=== PATIENT | male | born 1955 | race Caucasian/White ===

== ENCOUNTER 2018-01-31 16:35 | Inpatient (IN) | payer BC, SELFPAY ==
[2018-01-31] VITALS (21 sets, daily range): BP systolic 116–185; BP diastolic 63–115; PULSE 39–65; RESP 12–20; TEMP 36.7–37; O2SAT 96–100; BMI 24.6; BMI 22.1; BMI 22.2
--- NOTE | 2018-01-31 15:30 | CT_ITS ---
STUDY: CTA CHEST REASON FOR EXAM: Male, 62 years old. Chest pain. Weakness. RADIATION DOSAGE (If Supplied By Facility): CTDIvol = ( 14.23 ) mGy, DLP = ( 1031.50 ) mGycm TECHNIQUE: The examination was performed with the intravenous administration of 100mL ml of Isovue 370 contrast material. Post-processing of the angiographic images was performed, with multiplanar reformation and 3D reconstruction. Individualized dose optimization techniques were used for this CT. COMPARISON: None. FINDINGS: Normal enhancement of the main pulmonary artery and right and left pulmonary arteries. Normal enhancement of the bilateral peripheral pulmonary arteries. There is no demonstrated pulmonary embolism. There is atherosclerotic calcification of the aortic arch and descending thoracic aorta. There is no demonstrated aortic dissection. Normal heart and pericardium. Normal mediastinum. Normal hilar regions. Normal visualized trachea and bronchi. There is minimal dependent atelectasis within the lower lobes. Normal chest wall structures. There are degenerative changes of thoracic spine. The limited images of the upper abdomen demonstrate a well-circumscribed low-attenuation focus within the left hepatic lobe that likely reflects underlying cyst. CT/CTA Chest W/WO Contrast IMPRESSION: No demonstrated pulmonary embolism or arterial dissection. Atherosclerosis. Minimal dependent atelectasis within the lower lobes. Electronically Signed: Lucina Molina MD at 18:35 EDT Tel , Service support ,
--- NOTE | 2018-01-31 16:48 | EKG12_ITS ---
Test Reason : CP Blood Pressure : / mmHG Vent. Rate : 065 BPM Atrial Rate : 075 BPM P-R Int : 196 ms QRS Dur : 090 ms QT Int : 430 ms P-R-T Axes : 080 075 069 degrees QTc Int : 447 ms Sinus rhythm with marked sinus arrhythmia Otherwise normal ECG Confirmed by EVE JAMES, YOSEPH ([id number]), mapping editor PINA EPPERSON ([id number]) on 02/04/2018 8:30:25 AM Referred By: Confirmed By:YOSEPH PRADO MD
--- NOTE | 2018-01-31 16:48 | CT_ITS ---
STUDY: CT BRAIN WITHOUT CONTRAST REASON FOR EXAM: Male, 62 years old. Weakness and chest pain RADIATION DOSAGE (If Supplied By Facility): CTDIvol = ( 44.99 ) mGy, DLP = ( 812.98 ) mGycm TECHNIQUE: Transaxial CT imaging of the brain was performed without administration of intravenous contrast material. Individualized dose optimization techniques were used for this CT. COMPARISON: None. FINDINGS: Normal soft tissue structures. Normal calvarium. Normal size ventricles and extra-axial spaces for the patient's age. Mild to moderate periventricular white matter ischemic changes.. Normal basal ganglia and thalami. Normal brainstem. Normal cerebellum. There is no intracranial hemorrhage. There are no findings of an acute ischemic infarction. Normal visualized paranasal sinuses. CT/Brain/Head without Contrast IMPRESSION: Periventricular white matter ischemic changes. No evidence for acute bleed. If concern for acute infarct MRI recommended. Electronically Signed: Thomas Lovell MD at 21:16 EDT , Service support ,
--- NOTE | 2018-01-31 16:54 | ED.DCSUM_ITS ---
- ER Visit Summary Date of Service: 01/31/18 Chief Complaint: syncope, chest pain History of Present Illness: The patient is a 62 M presents with a syncopal episode at work. He became lightheaded. He also developed some chest pain at the time. After his syncopal episode which was described as a brief loss of consciousness with rapid full recovery he developed left arm weakness. He has not taken his blood pressure medications for the past few months. Physical Examination: Patient is alert and oriented does not appear in significant distress Moist mucous membranes No signs of trauma Regular rate and rhythm without obvious murmurs. Clear lungs bilaterally Soft abdomen no tenderness midline incision from old surgery No obvious musculoskeletal abnormalities NIH stroke scale is 2, he gets 1 for weakness of his left arm that does not quite hit the ground after 10 seconds, and slight sensory abnormality compared to the contralateral side. Emergency Department Course and Treatment: CT angiogram of the chest is negative. CT angiogram of the head and neck were also ordered and pending, I believe patient had hypoperfusion due to his bradycardia, he may have some underlying atherosclerosis which manifested as strokelike symptoms. He certainly has bradycardia and he got all the way into the 30s, at that time he felt more symptomatic and atropine was given. He improved. Rest of the workup was unremarkable cardiology and medicine were consulted and patient will be admitted to ICU for further observation, and workup. Disposition: Admit to ICU in serious condition Impression: Bradycardia Strokelike symptoms Critical care time 35 minutes This note was generated with [employer] dictation software. It may contain incorrect words, spelling, and punctuation that were not noted in review of the chart prior to signing ED Disposition - Plan for ED Patient: Chief Complaint: Chest Pain Referrals: Prince Benavidez MD [Primary Care Provider] -
--- NOTE | 2018-01-31 16:56 | ED.RN ---
NO OLD EKG
--- NOTE | 2018-01-31 17:05 | ED.RN ---
THIS RN ASSISTED PT IN CALLING SISTER TO NOTIFY HER OF BEING IN THE ED.
[2018-01-31 17:10] LABS: Anion Gap 6 (5-15); BUN 15 mg/dL (7-18); BUN/Creat Ratio 18.8 RATIO (10-20); Calcium,Total 8.7 mg/dL (8.5-10.1); Chloride 112 mmol/L (98-107); EST Glomerular Filtration Rate 105 mL/min (>60); Est Glom Filt Rate - Afr Amer 127 mL/min (>60); Estimated Creatinine Clearance 96.97 ml/min; Glucose 80 mg/dL (74-106); Potassium 3.7 mmol/L (3.5-5.1); Sodium Level 145 mmol/L (136-145)
--- NOTE | 2018-01-31 17:10 | RAD_ITS ---
STUDY: X-RAY CHEST REASON FOR EXAM: Male, 62 years old. Chest pain TECHNIQUE: AP upright COMPARISON: None. FINDINGS: The lungs are clear and expanded. There is no demonstrated pleural abnormality. Normal size heart. Normal mediastinum and allegra. Normal visualized pulmonary arteries. There is atherosclerotic calcification of the aortic arch. Normal visualized thoracic spine. Normal visualized ribs, clavicles, and shoulders. There is no demonstrated abnormality of the visualized soft tissue structures of the upper abdomen. RAD/Chest 1 View IMPRESSION: No acute cardiopulmonary process. Electronically Signed: Lucina Molina MD at 21:10 EDT Tel , Service support ,
[2018-01-31 17:11] LABS: Bedside Glucose 90 mg/dL (70-110)
[2018-01-31 17:13] LABS: International Normalized Ratio 1.1; Prothrombin Time (Protime)PT. 14.5 SECONDS (11.7-14.9)
[2018-01-31 17:14] LABS: Partial Thromboplast Time 28.7 Seconds (24.1-36.2)
[2018-01-31 17:17] LABS: Absolute Lymphocyte Count 1.23 X10^3/ul (0.83-4.51); Absolute Neutrophil Count 3.9 X10^3/uL (2.0-7.7); Basophil# 0.01 X10^3/uL; Basophil% 0.2 % (0-1); Eosinophil# 0.07 X10^3/uL; Eosinophils% 1.3 % (0-5); Hematocrit 39.2 % (40-54); Hemoglobin 13.1 g/dl (13.0-16.5); Lymphocyte # 1.23 X10^3/ul (4.0); Mean Corp Hgb Conc 33.4 g/gl (32-36); Mean Corpuscular Hgb 30.8 pg (27.0-32.0); Monocyte% 7.2 % (0-10); Neutrophil # 3.86 X10^3/uL (2.7-7.7); Neutrophil % 69.1 % (47-70); Platelet Count 204 K/mm3 (150-450); RBC Distribution Width CV 13.8 % (11.6-14.6); RBC Distribution Width SD 46.3 fl (35.1-43.9); Red Blood Count 4.26 M/mm3 (4.6-6.2); White Blood Count 5.6 K/mm3 (4.4-11.0)
[2018-01-31 17:20] LABS: POSITIVE COUNT NO; POSITIVE DIFFERENTIAL NO; POSITIVE MORPHOLOGY NO
--- NOTE | 2018-01-31 17:37 | CT_ITS ---
STUDY: CTA OF THE BRAIN REASON FOR EXAM: Male, 62 years old. Chest pain and weakness RADIATION DOSAGE (If Supplied By Facility): CTDIvol = ( 14.23 ) mGy, DLP = ( 1031.50 ) mGycm TECHNIQUE: CT angiography was performed with a multi-detector CT scanner. Data acquisition was obtained from the skull base through the vertex following intravenous administration of ml of . MIP images were reconstructed from the axial data set. Post-processing of the angiographic images was performed, with multiplanar reformation and 3D reconstruction. Individualized dose optimization techniques were used for this CT. COMPARISON: None. FINDINGS: Normal bilateral petrous carotid arteries. There is calcific plaquing of the right cavernous carotid artery with a normal supraclinoid bifurcation. There is calcific plaquing of the left cavernous carotid artery with a normal supraclinoid bifurcation. Normal right A1 segments of the anterior cerebral artery. Normal left A1 segments of the anterior cerebral artery. Normal intact anterior communicating artery (ACOM). Normal bilateral A2 segments of the anterior cerebral arteries. Normal right M1 and M2 segments of the middle cerebral arteries, with a normal M1 bifurcation. Normal left M1 and M2 segments of the middle cerebral arteries, with a normal M1 bifurcation. Posterior communicating arteries not visualized consistent with normal variant Normal bilateral vertebral arteries. Normal basilar artery with a normal basilar bifurcation. The visualized bilateral superior cerebellar (SCA) arteries are normal. Normal bilateral P1, P2 and visualized P3 segments of the posterior cerebral arteries. There is no demonstrated aneurysm of the [place]. There is no demonstrated abnormality of the visualized brain. CT/CTA Head W/WO Contrast IMPRESSION: Mild atherosclerotic disease. No evidence for hemodynamically significant stenosis or occlusive thrombus within the [place] Electronically Signed: Thomas Lovell MD at 21:10 EDT , Service support ,
--- NOTE | 2018-01-31 17:37 | CT_ITS ---
STUDY: CTA neck with IV contrast REASON FOR EXAM: Male, 62 years old. Chest pain RADIATION DOSAGE (If Supplied By Facility): CTDIvol = ( 14.23 ) mGy, DLP = ( 1031.50 ) mGycm. Individualized dose optimization techniques were used for this CT.? TECHNIQUE: Axial CTA images of the neck were obtained after intravenous administration of 100 cc of Isovue 370. Maximum intensity projection imaging was performed.NASCET Criteria was utilized to assess for carotid stenosis COMPARISON: None. FINDINGS: Origin of the great vessels demonstrate atherosclerotic calcifications with soft tissue plaque formation. Bilateral common carotid arteries are patent however there is atherosclerotic soft tissue plaque formation and calcifications of the bilateral common carotid arteries noted in the mid and distal segments. Approximately less than 50% stenosis of the bilateral carotid bifurcations with soft tissue plaque formation and calcifications, right greater than left. The mid and distal segments of the cervical internal carotid arteries are patent. The vertebral arteries are patent with atherosclerotic calcifications at the origins. The left dominant vertebral artery seen. The vertebrobasilar junction is patent. Degenerative changes in the cervical spine. Multilevel neural foraminal narrowing. Intracranial vasculature is not well seen on this exam. There are likely emphysematous changes in the lung parenchyma with scarring which can be assessed with CT examination of the chest IMPRESSION: Approximately less than 50% stenosis of the bilateral proximal cervical internal carotid arteries with soft tissue plaque formation and calcifications. No significant stenosis of the cervical vertebral arteries seen. Electronically Signed: Channing Estrada, at 21:07 EDT Tel , Service support , CT/CTA Neck W/WO Contrast
[2018-01-31] MEDS: Atropine Sulfate 1 MG/10 ML Syringe IV (17:41)
--- NOTE | 2018-01-31 18:03 | EKG12_ITS ---
Test Reason : REPEAT Blood Pressure : / mmHG Vent. Rate : 038 BPM Atrial Rate : 038 BPM P-R Int : 256 ms QRS Dur : 090 ms QT Int : 498 ms P-R-T Axes : 071 075 058 degrees QTc Int : 395 ms Marked sinus bradycardia with 1st degree A-V block with Premature atrial complexes in a pattern of bi geminy Abnormal ECG Confirmed by EVE JAMES, YOSEPH ([id number]), features editor PINA EPPERSON ([id number]) on 02/04/2018 8:30:40 AM Referred By: Confirmed By:YOSEPH PRADO MD
[2018-01-31 21:07] LABS: Thyroid Stim Hormone (TSH) 2.16 uIU/mL (0.358-3.74)
--- NOTE | 2018-01-31 21:12 | HP.PCM_ITS ---
Problem List (1) Bradycardia Status: Acute (2) Near syncope Status: Acute (3) Hypertension Status: Chronic Qualifiers: Hypertension type: unspecified Qualified Code(s): I10 - Essential (primary ) hypertension History of Present Illness Date of Admission: 01/31/18 Chief Complaint: dizzyness and lightheaded with slow heart rate The patient is a 62 year old male patient with a history of hypertension who has not taken his medication for four months presents to the ER after an episode of dizziness and lightheadedness at work. He was lowered to the floor and it is unclear if he completely passed out. He complained of chest pain to those around him at the time but denies pain at present. He was noted to have left wrist numbness and weakness in the ER and CTA of head and neck was ordered. He had an episode of bradycardia for which he received a dose of atropine. No previous cardiac history but he does smoke and is hypertensive. He denies chest pain or shortness of breath at present and denies feeling numb or tingling at this time. He will be admitted to the ICU with a consult to Dr Villafana. Past Medical History Past Medical History (Chronic Problems): Chronic Problems Hypertension (Chronic) Allergies No Known Allergies Allergy (Verified 01/31/18 16:35) Home Medications: Ambulatory Orders Medication Instructions Recorded Lisinopril/Hydrochlorothiazide 1 each PO DAILY 04/09/16 [Zestoretic 20-25 mg Tablet] Smoking Status: Current every day smoker Tobacco Use: Cigarettes, Pipe Review of Systems Constitutional: Denies: Chills, Fever, Weight Change HEENT: Denies: Head Aches, Sinus Congestion, Sinus Drainage Cardiovascular: Reports: Chest Pain, Light Headedness, Syncope. Denies: Palpitations Respiratory: Denies: Cough, Shortness of breath at rest, Sputum production Gastrointestinal: Denies: Abdominal Pain, Nausea, Vomiting Genitourinary: Denies: Dysuria Musculoskeletal: Denies: Joint Pain, Joint Tenderness Skin: Denies: Rash, Wounds Neurological: Reports: Numbness, Tingling. Denies: Focal weakness Psychiatric: Denies: Anxiety, Depression, Homicidal Ideations, Suicidal Ideations Hematologic/ Lymphatic: Denies: Easy Bruising, Easy Bleeding VTE Information - Inpt Only VTE Present on Admission: No VTE Mechan Device Prophylaxis: None VTE Pharm Prophylaxis ordered?: Yes Patient Problems: Active and Suspected Problems Bradycardia (Acute) Near syncope (Acute) - Physical Exam General: Alert, Oriented x3, Cooperative HEENT: Atraumatic, PERRLA, EOMI, Normocephalic Neck: Supple, No JVD, Negative Carotid Bruits Lungs: Clear to auscultation, Normal air movement Cardiovascular: Normal S1, Normal S2, No murmurs, Bradycardic, Irregular Rate Abdomen: Bowel Sounds Present, Soft, Non Tender Extremities: No edema, Capillary Refill Less than 3 Seconds Skin: No rashes, No breakdown Musculoskeletal: No Tenderness to Palpation of Joints or Extremities Neurological: Cranial nerves II-XII grossly intact Psych/Mental Status: Normal Affect, Appropriate Vital Signs Temp Pulse Resp BP Pulse Ox 98.6 F 65 14 156/93 H 96 01/31/18 16:36 01/31/18 20:30 01/31/18 20:30 01/31/18 20:30 01/31/18 20:30 Oxygen Flow Rate (L/min) 2 Oxygen Delivery Method Nasal Cannula Weight: 166 lb 10.711 oz Body Mass Index (BMI) 24.6 Finger Stick Blood Glucose 90 Laboratory Tests Past 24 Hrs 01/31/18 01/31/18 01/31/18 16:40 16:40 16:40 WBC 5.6 RBC 4.26 L Hgb 13.1 Hct 39.2 L MCV 92.0 MCH 30.8 MCHC 33.4 RDW 13.8 RDW Differential 46.3 H Plt Count 204 MPV 10.0 Immature Gran % (Auto) 0.200 Neut % (Auto) 69.1 Lymph % (Auto) 22.0 [place] % (Auto) 7.2 Eos % (Auto) 1.3 Baso % (Auto) 0.2 Absolute Neuts (auto) 3.9 Absolute Lymphs (auto) 1.23 Total Counted Not Reportable PT 14.5 INR 1.1 APTT 28.7 Sodium 145 Potassium 3.7 Chloride 112 H Carbon Dioxide 27.0 Anion Gap 6 BUN 15 Creatinine 0.80 Estim Creat Clear Calc 96.97 Est GFR (MDRD) Af Amer 127 Est GFR (MDRD) Non-Af 105 BUN/Creatinine Ratio 18.8 Glucose 80 Calcium 8.7 Magnesium Troponin I < 0.015 TSH 01/31/18 16:40 WBC RBC Hgb Hct MCV MCH MCHC RDW RDW Differential Plt Count MPV Immature Gran % (Auto) Neut % (Auto) Lymph % (Auto) [place] % (Auto) Eos % (Auto) Baso % (Auto) Absolute Neuts (auto) Absolute Lymphs (auto) Total Counted PT INR APTT Sodium Potassium Chloride Carbon Dioxide Anion Gap BUN Creatinine Estim Creat Clear Calc Est GFR (MDRD) Af Amer Est GFR (MDRD) Non-Af BUN/Creatinine Ratio Glucose Calcium Magnesium Pending Troponin I TSH Pending POC Glucose 01/31/18 17:00 POC Glucose 90 Assessment/Plan All Active Problems Bradycardia (Acute) Near syncope (Acute) Plan - admit to ICU - Consult Dr Villafana - NPO at midnight - IV normal saline at 100cc/hour - cbc, bmp in am - cycle cardiac markers - echo in am - LMWH for DVT prophylaxis - add prn hydralazine order for control of hypertension - smoking cessation encouraged Code Visit Inpatient E&M: 74509 Init Hosp L3
[2018-01-31] MEDS: hydrALAZINE 20 MG/ML Vial 10 MG IV (22:50)
[2018-01-31] MEDS: 0.9% Normal Saline 1,000 ML 100 ML IV (23:05)
[2018-01-31 23:56] LABS: M R Staph aureus DNA By PCR Negative (Negative); Probe Check PASS; Specimen Processing Control PASS
[2018-02-01] VITALS (16 sets, daily range): BP systolic 95–145; BP diastolic 47–81; PULSE 36–52; RESP 14–19; TEMP 36.7; O2SAT 95–100
[2018-02-01] MEDS: 0.9% NaCl Peripheral Flush Adult/Peds IV (00:38)
[2018-02-01 03:32] LABS: Hematocrit 36.9 % (40-54); Hemoglobin 12.6 g/dl (13.0-16.5); Mean Corp Hgb Conc 34.1 g/gl (32-36); Mean Corpuscular Hgb 32.1 pg (27.0-32.0); Mean Corpuscular Volume 94.1 fL (80-94); Mean Platelet Vol. 9.9 fl (6.2-12.0); Platelet Count 163 K/mm3 (150-450); RBC Distribution Width CV 13.7 % (11.6-14.6); RBC Distribution Width SD 45.1 fl (35.1-43.9); Red Blood Count 3.92 M/mm3 (4.6-6.2); White Blood Count 3.8 K/mm3 (4.4-11.0)
[2018-02-01 03:35] LABS: Scan Indicated on CBC? Y/N NO
[2018-02-01 03:47] LABS: ALB/GLOB Ratio 1.1 RATIO (0.9-2.4); AST(SGOT) 16 U/L (15-37); Alanine Aminotransfer ALT/SGPT 21 U/L (16-61); Albumin, Serum 2.8 g/dL (3.2-5.0); Alkaline Phosphatase 58 U/L (45-117); Anion Gap 5 (5-15); BUN 11 mg/dL (7-18); BUN/Creat Ratio 18.2 RATIO (10-20); Calcium,Total 7.6 mg/dL (8.5-10.1); Chloride 114 mmol/L (98-107); Cholesterol 109 mg/dL (200); EST Glomerular Filtration Rate 145 mL/min (>60); Est Glom Filt Rate - Afr Amer 175 mL/min (>60); Estimated Creatinine Clearance 124.53 ml/min; Globulin 2.6 g/dL (2.2-4.2); Glucose 89 mg/dL (74-106); High Density Lipoprotein 31 mg/dL; Potassium 3.3 mmol/L (3.5-5.1); Protein, Total 5.4 g/dL (6.4-8.2); Sodium Level 148 mmol/L (136-145); Triglycerides 71 mg/dL; Very Low Density Lipoprotein 14 mg/dL (5-40)
--- NOTE | 2018-02-01 07:44 | STE_ITS ---
Reason For Study: Arrhythmia Stress Results Protocol: Jarrod Protocol Maximum Predicted HR: 159 bpm Target HR: 135 bpm% Max imum Predicted HR: 82 % DurationHeart Rate Stage (mm:ss) (bpm) BPCom ment Baseline 45 140/78 No Chest Pain Jarrod Protocol Stage I 3:00 93 160/72No Chest Pain; Mild Dyspnea Jarrod Protocol Stage II 3:00 11 6 174/70No Chest Pain; Mild Dyspnea Jarrod Protocol Stage III 3:00 13 1 168/64No Chest Pain; Moderate Dyspnea Recovery 65 130/72 No Chest Pain; No Dyspnea Stress Duration: 9:00 mm:ss Maximum Stress HR: 131 bpmM ETS: 10 Baseline Echocardiogram Findings Stress Echo Wall motion Data Resting WMIntermediate WMStress WM Resting Wall Motion Wall Motion Stress No regional wall motion No regional wall motion abnormalities noted. abnormalities noted. Ejection Fraction 55 %. Ejection Fraction 65 %. Stress Results Normal blood pressure response to exercise. Exercise was stopped due to achievement of target heart rate. EKG Data Baseline ECG demonstrates normal sinus rhythm with a rate of 44 beats per minute. Normal intervals are noted. The resting blood pressure was 140/78. The patient exercised according to the regular Jarrod protocol for a total duration of 9 minutes. The maximum heart rate attained was 142 beats per minute. This was 89% of maximum predicted heart rate. The patient exercised into stage 3 of the Jarrod protocol. During stress, there were no ST or T wave changes noted to suggest ischemia. At peak exercise, upsloping ST changes only were noted, which did not meet the criteria for ischemia. The peak blood pressure was 174/70. No arrhythmias noted. No clinical angina was noted. Interpretation Summary Normal resting LV systolic function. Nonstenotic valves. With stress, the LV size decreased and all segments augmented normally. The LVEF increased from 55% to 65%. Negative for ischemia at 89% of MPHR and at 10.4 METS. Normal stress echo with normal chronotropic response. Ordering Physician: Eugenio Villafana Referring Physician: Eugenio Villafana MD Performed By: Wanda Louis, JAISON, RVT
--- NOTE | 2018-02-01 07:55 | CON.PCM_ITS ---
Reason for Consult Date of Consultation: 02/01/18 Reason for Consultation: Bradycardia and lightheadedness History of Present Illness: The patient is a 62 year old male patient with a history of hypertension who has not taken his medication for four months presents to the ER after an episode of dizziness and lightheadedness at work. He was lowered to the floor and it is unclear if he completely passed out. He complained of chest pain to those around him at the time but denies pain at present. He was noted to have left wrist numbness and weakness in the ER and CTA of head and neck was ordered. The above was noted to be negative. He had an episode of bradycardia for which he received a dose of atropine. . He denies chest pain or shortness of breath at present and denies feeling numb or tingling at this time. He has not had any palpitations no paroxysmal nocturnal dyspnea pedal edema and he has not been on any rate limiting medications. He was basically previously on a combination lisinopril medication. At this particular time he feels well. He was admitted to the intensive care unit and observed overnight he was bradycardic but asymptomatic and did not require any further atropine or external pacing. Past Medical History Allergies/Adverse Reactions: Allergies No Known Allergies Allergy (Verified 01/31/18 16:35) Home Medications: Ambulatory Orders Medication Instructions Recorded Lisinopril/Hydrochlorothiazide 1 each PO DAILY 04/09/16 [Zestoretic 20-25 mg Tablet] Past Medical History (Chronic Problems): Chronic Problems Hypertension (Chronic) Surgical History: no surgical history Smoking Status: Current every day smoker Tobacco Use: Cigarettes, Pipe Alcohol: None Drugs: None Review of Systems - Review of Systems General: Denies: Fever, Night Sweats, Fatigue Cardiovascular: Reports: Near Syncope. Denies: Chest Discomfort, Shortness of Breath, Orthopnea, PND, Peripheral Edema, Palpitations, Lightheadedness, Dizziness, Syncope Respiratory: Denies: Cough, Sputum Production, Hemoptysis Gastrointestinal: Denies: Hematemesis, Hematochezia, Melena Genitourinary: Denies: Dysuria, Hematuria Skin: Denies: Rash Neurological: Denies: Dizziness Subjectve: Pleasant gentleman in no apparent distress Objective: Vital Signs Temp Pulse Resp BP Pulse Ox 98.1 F 42 L 14 114/75 98 02/01/18 04:00 02/01/18 07:00 02/01/18 07:00 02/01/18 07:00 02/01/18 07:00 Oxygen Flow Rate (L/min) 2 Oxygen Delivery Method Room Air Weight: 149 lb 14.629 oz Body Mass Index (BMI) 22.1 Intake and Output for Last 24 Hours 01/30/18 01/31/18 02/01/18 23:59 23:59 23:59 Intake Total 415 / 415 547 / 547 Output Total 625 / 625 Balance 415 / 415 -78 / -78 General: Awake, Alert, Oriented x 3 HEENT: PERRL, EOMI, Sclera Non Icteric Neck: Supple, Good ROM, No Lymph Node Enlargement Lungs: Clear to auscultation Cardiovascular: Regular Rhythm, Normal S1, Normal S2, No Murmurs, No Rubs, No Gallops Vascular: No Carotid Bruits, Normal Femoral Pulses, Normal Radial Pulses, Normal Dorsalis Pedal Pulse, Normal Posterior Tibial Pulses Abdomen: Bowel Sounds Present, Soft, Non Tender, No HSM, No Organomegaly Extremities: No Cyanosis, No Clubbing, No edema Neurological: No Focal Motor or Sensory Deficit 01/31/18 22:50: Troponin I < 0.015 02/01/18 03:15: WBC 3.8 L, RBC 3.92 L, Hgb 12.6 L, Hct 36.9 L, MCV 94.1 H, MCH 32.1 H, MCHC 34.1, RDW 13.7, RDW Differential 45.1 H, Plt Count 163, MPV 9.9 02/01/18 03:15: Sodium 148 H, Potassium 3.3 L, Chloride 114 H, Carbon Dioxide 29.0, Anion Gap 5, BUN 11, Creatinine 0.60 L, Est GFR (MDRD) Af Amer 175, Est GFR (MDRD) Non-Af 145, BUN/Creatinine Ratio 18.2, Glucose 89, Calcium 7.6 L, Total Bilirubin 0.40, Triglycerides 71, Cholesterol 109, LDL Cholesterol 64, VLDL Cholesterol 14, HDL Cholesterol 31 L 02/01/18 03:15: Troponin I 0.016 02/01/18 06:20: Troponin I < 0.015 Rhythm: EKG: Initial EKG demonstrates normal sinus rhythm with a rate of 70 bpm.: Follow-up EKG demonstrates sinus bradycardia with premature atrial complexes rate of 58 bpm with no acute changes.: This morning's EKG on 02/01 demonstrates normal sinus rhythm with a rate of 63 bpm. Assessment/Plan 1. Presyncopal episode. Patient presents with a presyncopal episode associated with bradycardia. He appears to have normal LA QRS conduction. He was bradycardic through the night but no pauses in excess of 2.5 seconds. My recommendation at this time would be in light of his electrolytes been fairly normal and his thyroid function tests be normal for him to undergo a stress test to assess his chronotropic competence. * Depending on the above further recommendations will be made. An echocardiogram will also be performed to assess his left ventricular function. * 2. Hypertension He does have a history of hypertension but apparently has not been compliant with his medications. He was hypertensive last night when he came in today appears to be doing fairly well. Thank you for allowing me to participate in the care of your patient. Please don't hesitate to call if any issues arise
--- NOTE | 2018-02-01 08:16 | NURSING ---
Pt transported to stress echo via bed by this RN
--- NOTE | 2018-02-01 09:38 | CASEMGMT ---
SEE ABHIJIT BARAJAS LINK. D/C PLAN: Home Discussed Adv Directives with pt and booklet given. Pt has a son and sister who he would like as DPOA. ABHIJIT BARAJAS discussed pt to consider primary and secondary for these choices. Discussed about Living Will also. ABHIJIT BARAJAS discussed importance of speaking with family re: Living Will and his choices. SW consulted and will go in to talk to pt. No discharge needs identified. Nany OAKLEY RN, CM
[2018-02-01] MEDS: Lisinopril 20 MG Tablet PO (10:46)
[2018-02-01] MEDS: Enoxaparin 40 MG/0.4 ML Syringe SC (10:46)
[2018-02-01] MEDS: Aspirin E.C. 81 MG Tablet PO (10:46)
--- NOTE | 2018-02-01 11:13 | PCM.PN.HOSP ---
Patient Problems: Active and Suspected Problems Bradycardia (Acute) Near syncope (Acute) Subjective: No new events. Vitals/I&O's: Vital Signs Temp Pulse Resp BP Pulse Ox 36.7 C 49 L 14 145/73 H 99 02/01/18 09:59 02/01/18 11:02 02/01/18 11:00 02/01/18 11:00 02/01/18 11:00 Oxygen Flow Rate (L/min) 2 Oxygen Delivery Method Room Air Weight: 68 kg Body Mass Index (BMI) 22.1 Intake and Output for Last 24 Hours 01/30/18 01/31/18 02/01/18 23:59 23:59 23:59 Intake Total 415 / 415 547 / 547 Output Total 625 / 625 Balance 415 / 415 -78 / -78 General: Alert, No apparent distress HEENT: Atraumatic, Normocephalic Oral: Moist Mucosa Neck: No Nodes, Thyroid Normal Size and Texture Lungs: Clear to auscultation, Normal air movement, No rhonchi, No wheeze Cardiovascular: Regular rate, Regular Rhythm, Normal S1, Normal S2, No murmurs Abdomen: Bowel Sounds Present, Soft, Non Tender, Non-Distended, No Hepato-splenomegaly Extremities: No edema, No Calf Tenderness Laboratory Results 01/31/18 22:15: MRSA (PCR) Negative 01/31/18 22:50: Troponin I < 0.015 02/01/18 03:15: WBC 3.8 L, RBC 3.92 L, Hgb 12.6 L, Hct 36.9 L, MCV 94.1 H, MCH 32.1 H, MCHC 34.1, RDW 13.7, RDW Differential 45.1 H, Plt Count 163, MPV 9.9 02/01/18 03:15: Sodium 148 H, Potassium 3.3 L, Chloride 114 H, Carbon Dioxide 29.0, Anion Gap 5, BUN 11, Creatinine 0.60 L, Estim Creat Clear Calc 124.53, Est GFR (MDRD) Af Amer 175, Est GFR (MDRD) Non-Af 145, BUN/Creatinine Ratio 18.2, Glucose 89, Calcium 7.6 L, Total Bilirubin 0.40, AST 16, ALT 21, Alkaline Phosphatase 58, Total Protein 5.4 L, Albumin 2.8 L, Globulin 2.6, Albumin/Globulin Ratio 1.1, Triglycerides 71, Cholesterol 109, LDL Cholesterol 64, VLDL Cholesterol 14, HDL Cholesterol 31 L 02/01/18 03:15: Troponin I 0.016 02/01/18 06:20: Troponin I < 0.015 Current Medications Aspirin (Ecotrin) 81 mg PO DAILY@0800 ON LICENSE OF [facility] Last Admin: 02/01/18 10:46 Dose: 81 mg Enoxaparin Sodium (Lovenox) 40 mg SC DAILY@1000 ON LICENSE OF [facility] Last Admin: 02/01/18 10:46 Dose: 40 mg Hydralazine HCl (Apresoline Iv) 10 mg IV Q6H PRN PRN PRN Reason: BLOOD PRESSURE ELEVATION Last Admin: 01/31/18 22:50 Dose: 10 mg Sodium Chloride () 1,000 mls @ 100 mls/hr IV .Q10H ON LICENSE OF [facility] Last Admin: 02/01/18 10:13 Dose: Not Given Sodium Chloride () 250 mls @ 15 mls/hr IV .[id number] PRN PRN Reason: SALINE FLUSH Lisinopril (Zestril) 20 mg PO DAILY ON LICENSE OF [facility] Last Admin: 02/01/18 10:46 Dose: 20 mg Magnesium Hydroxide (Milk Of Magnesia) 30 ml PO DAILY PRN PRN PRN Reason: Constipation Nitroglycerin (Nitrostat) 0.4 mg SUBLINGUAL Q5M PRN PRN Reason: CHEST PAIN Sodium Chloride () 5 - 30 ml IV UD PRN PRN Reason: SALINE FLUSH Last Admin: 02/01/18 00:38 Dose: 30 ml Medical Necessity - Tobacco Use Smoking Status: Current every day smoker Tobacco Use: Cigarettes, Pipe Assessment/Plan All Active Problems Bradycardia (Acute) Near syncope (Acute) 1. Near syncope/syncope work up has been unremarkable pt endorses that he does not eat well, nor drink fluids when he is working (2nd shift) event may have been multifactorial d/t poor eating and drinking, lifting heavy object (40-50#) that led to the event bradycardia has been persistent with PACs 2. Bradycardia persistent w PACs follow up with Dr. Villafana in 6 weeks
--- NOTE | 2018-02-01 11:17 | PN_ITS ---
Patient Problems: Active and Suspected Problems Bradycardia (Acute) Near syncope (Acute) Subjective: No new events. Vitals/I&O's: Vital Signs Temp Pulse Resp BP Pulse Ox 36.7 C 49 L 14 145/73 H 99 02/01/18 09:59 02/01/18 11:02 02/01/18 11:00 02/01/18 11:00 02/01/18 11:00 Oxygen Flow Rate (L/min) 2 Oxygen Delivery Method Room Air Weight: 68 kg Body Mass Index (BMI) 22.1 Intake and Output for Last 24 Hours 01/30/18 01/31/18 02/01/18 23:59 23:59 23:59 Intake Total 415 / 415 547 / 547 Output Total 625 / 625 Balance 415 / 415 -78 / -78 General: Alert, No apparent distress HEENT: Atraumatic, Normocephalic Oral: Moist Mucosa Neck: No Nodes, Thyroid Normal Size and Texture Lungs: Clear to auscultation, Normal air movement, No rhonchi, No wheeze Cardiovascular: Regular rate, Regular Rhythm, Normal S1, Normal S2, No murmurs Abdomen: Bowel Sounds Present, Soft, Non Tender, Non-Distended, No Hepato- splenomegaly Extremities: No edema, No Calf Tenderness Laboratory Results 01/31/18 22:15: MRSA (PCR) Negative 01/31/18 22:50: Troponin I < 0.015 02/01/18 03:15: WBC 3.8 L, RBC 3.92 L, Hgb 12.6 L, Hct 36.9 L, MCV 94.1 H, MCH 32.1 H, MCHC 34.1, RDW 13.7, RDW Differential 45.1 H, Plt Count 163, MPV 9.9 02/01/18 03:15: Sodium 148 H, Potassium 3.3 L, Chloride 114 H, Carbon Dioxide 29.0, Anion Gap 5, BUN 11, Creatinine 0.60 L, Estim Creat Clear Calc 124.53, Est GFR (MDRD) Af Amer 175, Est GFR (MDRD) Non-Af 145, BUN/Creatinine Ratio 18.2 , Glucose 89, Calcium 7.6 L, Total Bilirubin 0.40, AST 16, ALT 21, Alkaline Phosphatase 58, Total Protein 5.4 L, Albumin 2.8 L, Globulin 2.6, Albumin/ Globulin Ratio 1.1, Triglycerides 71, Cholesterol 109, LDL Cholesterol 64, VLDL Cholesterol 14, HDL Cholesterol 31 L 02/01/18 03:15: Troponin I 0.016 02/01/18 06:20: Troponin I < 0.015 Current Medications Aspirin (Ecotrin) 81 mg PO DAILY@0800 [facility] Last Admin: 02/01/18 10:46 Dose: 81 mg Enoxaparin Sodium (Lovenox) 40 mg SC DAILY@1000 [facility] Last Admin: 02/01/18 10:46 Dose: 40 mg Hydralazine HCl (Apresoline Iv) 10 mg IV Q6H PRN PRN PRN Reason: BLOOD PRESSURE ELEVATION Last Admin: 01/31/18 22:50 Dose: 10 mg Sodium Chloride () 1,000 mls @ 100 mls/hr IV .Q10H [facility] Last Admin: 02/01/18 10:13 Dose: Not Given Sodium Chloride () 250 mls @ 15 mls/hr IV .[id number] PRN PRN Reason: SALINE FLUSH Lisinopril (Zestril) 20 mg PO DAILY [facility] Last Admin: 02/01/18 10:46 Dose: 20 mg Magnesium Hydroxide (Milk Of Magnesia) 30 ml PO DAILY PRN PRN PRN Reason: Constipation Nitroglycerin (Nitrostat) 0.4 mg SUBLINGUAL Q5M PRN PRN Reason: CHEST PAIN Sodium Chloride () 5 - 30 ml IV UD PRN PRN Reason: SALINE FLUSH Last Admin: 02/01/18 00:38 Dose: 30 ml Medical Necessity - Tobacco Use Smoking Status: Current every day smoker Tobacco Use: Cigarettes, Pipe Assessment/Plan All Active Problems Bradycardia (Acute) Near syncope (Acute) 1. Near syncope/syncope * work up has been unremarkable * pt endorses that he does not eat well, nor drink fluids when he is working ( 2nd shift) * event may have been multifactorial d/t poor eating and drinking, lifting heavy object (40-50#) that led to the event * bradycardia has been persistent with PACs 2. Bradycardia * persistent w PACs * follow up with Dr. Villafana in 6 weeks
--- NOTE | 2018-02-01 11:19 | PCM.WORK.EX ---
Work/School Excuse Work/School Excuse for:: Patient Please excuse this person from:: Work From: 01/31/18 through: 02/01/18
--- NOTE | 2018-02-01 11:20 | PCM.DC ---
- Discharge Diagnoses Current Active Problems: Current Active and Chronic Problems Bradycardia (Acute) Near syncope (Acute) Hypertension (Chronic) You will use the following diet at home:: No restrictions Your food should be the consistency of: Regular Discharge Activity: Return to Normal Activity Return to work on:: 02/02/18 Call your doctor if you observe: Shortness of breath, Fainting spells Allergies/Adverse Reactions: Allergies No Known Allergies Allergy (Verified 01/31/18 16:35) Medications to take at Discharge Aspirin E.C. [Ecotrin] 81 mg PO DAILY@0800 tablet 02/01/18 Primary Care Physician: Prince Benavidez MD [Primary Care Provider] - Within 2 Weeks Please Follow Up With: Eugenio Villafana MD - Cardiology When: 6 weeks Proposed Discharge Date: 02/01/18
--- NOTE | 2018-02-01 11:22 | PCM.DC.SUM ---
Discharge Date and Diagnosis - Problem List Patient Problems: Active and Suspected Problems Bradycardia (Acute) Near syncope (Acute) Date of Admission: 01/31/18 Date of Discharge: 02/01/18 - Primary Discharge Diagnosis Active and Suspected Problems Bradycardia (Acute) Near syncope (Acute) - Secondary Discharge Diagnosis Chronic Problems Hypertension (Chronic) Hospital Course and Treatment Imaging Results: 02/01/18 07:44 Stress Test Echo w/o Contrast [ECHO] Routine Clinical Impression(s) from Imaging Studies Chest CTA 01/31/18 15:30 IMPRESSION: No demonstrated pulmonary embolism or arterial dissection. Atherosclerosis. Minimal dependent atelectasis within the lower lobes. Electronically Signed: Lucina Molina MD at 18:35 EDT Tel , Service support , Brain CT 01/31/18 16:48 IMPRESSION: Periventricular white matter ischemic changes. No evidence for acute bleed. If concern for acute infarct MRI recommended. Electronically Signed: Thomas Lovell MD at 21:16 EDT , Service support , Chest X-Ray 01/31/18 17:10 IMPRESSION: No acute cardiopulmonary process. Electronically Signed: Lucina Molina MD at 21:10 EDT Tel , Service support , Head CTA 01/31/18 17:37 IMPRESSION: Mild atherosclerotic disease. No evidence for hemodynamically significant stenosis or occlusive thrombus within the [place] Electronically Signed: Thomas Lovell MD at 21:10 EDT , Service support , Neck CTA 01/31/18 17:37 Eugenio [facility] Operations: None Procedures: None Summary of Care Provided: The patient is a 62 year old M presents with syncope. [place] to be vasovagal. Had extensive w/u, including: Head CT, head CTA, neck CTA, echo and stress test. All were unremarkable. 1. Near syncope/syncope work up has been unremarkable pt endorses that he does not eat well, nor drink fluids when he is working (2nd shift) event may have been multifactorial d/t poor eating and drinking, lifting heavy object (40-50#) that led to the event bradycardia has been persistent with PACs 2. Bradycardia persistent w PACs follow up with Dr. Villafana in 6 weeks[] Discharge Activity: Return to Normal Activity Return to work on:: 02/02/18 Call your doctor if you observe: Shortness of breath, Fainting spells Home Medications: Medications to take at Discharge Aspirin E.C. [Ecotrin] 81 mg PO DAILY@0800 tablet 02/01/18 Primary Care Physician: Prince Benavidez MD [Primary Care Provider] - Within 2 Weeks Please Follow Up With: Eugenio Villafana MD - Cardiology When: 6 weeks Disposition: Home Minutes spent on discharge:: 35 Patient Condition:: Good Medical Necessity - Tobacco Use Smoking Status: Current every day smoker Tobacco Use: Cigarettes, Pipe Meaningful Use Info Meaningful Use Diagnoses (Choose all that apply): None applicable Code Visit OBSV E&M: 09607 Observation care discharge
--- NOTE | 2018-02-01 11:25 | DS.PCM_ITS ---
Discharge Date and Diagnosis - Problem List Patient Problems: Active and Suspected Problems Bradycardia (Acute) Near syncope (Acute) Date of Admission: 01/31/18 Date of Discharge: 02/01/18 - Primary Discharge Diagnosis Active and Suspected Problems Bradycardia (Acute) Near syncope (Acute) - Secondary Discharge Diagnosis Chronic Problems Hypertension (Chronic) Hospital Course and Treatment Imaging Results: 02/01/18 07:44 Stress Test Echo w/o Contrast [ECHO] Routine Clinical Impression(s) from Imaging Studies Chest CTA 01/31/18 15:30 IMPRESSION: No demonstrated pulmonary embolism or arterial dissection. Atherosclerosis. Minimal dependent atelectasis within the lower lobes. Electronically Signed: Lucina Molnia MD at 18:35 EDT Tel , Service support , Brain CT 01/31/18 16:48 IMPRESSION: Periventricular white matter ischemic changes. No evidence for acute bleed. If concern for acute infarct MRI recommended. Electronically Signed: Thomas Lovell MD at 21:16 EDT , Service support , Chest X-Ray 01/31/18 17:10 IMPRESSION: No acute cardiopulmonary process. Electronically Signed: Lucina Molina MD at 21:10 EDT Tel , Service support , Head CTA 01/31/18 17:37 IMPRESSION: Mild atherosclerotic disease. No evidence for hemodynamically significant stenosis or occlusive thrombus within the [place] Electronically Signed: Thomas Lovell MD at 21:10 EDT , Service support , Neck CTA 01/31/18 17:37 Eugenio [facility] Operations: None Procedures: None Summary of Care Provided: The patient is a 62 year old M presents with syncope. [place] to be vasovagal. Had extensive w/u, including: Head CT, head CTA, neck CTA, echo and stress test. All were unremarkable. 1. Near syncope/syncope * work up has been unremarkable * pt endorses that he does not eat well, nor drink fluids when he is working ( 2nd shift) * event may have been multifactorial d/t poor eating and drinking, lifting heavy object (40-50#) that led to the event * bradycardia has been persistent with PACs 2. Bradycardia * persistent w PACs * follow up with Dr. Villafana in 6 weeks[] Discharge Activity: Return to Normal Activity Return to work on:: 02/02/18 Call your doctor if you observe: Shortness of breath, Fainting spells Home Medications: Medications to take at Discharge Aspirin E.C. [Ecotrin] 81 mg PO DAILY@0800 tablet 02/01/18 Primary Care Physician: Prince Benavidez MD [Primary Care Provider] - Within 2 Weeks Please Follow Up With: Eugenio Villafana MD - Cardiology When: 6 weeks Disposition: Home Minutes spent on discharge:: 35 Patient Condition:: Good Medical Necessity - Tobacco Use Smoking Status: Current every day smoker Tobacco Use: Cigarettes, Pipe Meaningful Use Info Meaningful Use Diagnoses (Choose all that apply): None applicable Code Visit OBSV E&M: 28867 Observation care discharge
== END 2018-02-01 12:46 | disposition home or self-care (01) | DRG 310 ==
LOC: ED 17:32 → ICU 21:22
PROVIDERS: Admitting Provider Family Medicine; Emergency Provider Emergency Medicine; Family Provider Family Medicine; PCP Family Medicine
DX: R00.1 Bradycardia, unspecified (principal); I10 Essential (primary) hypertension; F17.210 Nicotine dependence, cigarettes, uncomplicated; R55 Syncope and collapse
CPT/HCPCS: 70450; 70496; 70498; 71045; 71275; 80048; 80053; 80061; 82962; 83735; 84443; 84484; 85025; 85027; 85610; 85730; 87641; 93005; 93017; 93350; 99285; J7030; Q9967; A4216

== ENCOUNTER 2019-06-07 12:32 | Emergency (ER) | payer BC, SELFPAY ==
[2019-06-07 12:32] VITALS: BP 141/91; PULSE 87; RESP 20; TEMP 36.6; O2SAT 100; BMI 24.3
--- NOTE | 2019-06-07 13:06 | ED.VISSUMM ---
- ER Visit Summary Date of Service: 06/07/19 Chief Complaint: Nausea, vomiting, loose stools and right-sided abdominal pain History of Present Illness: The patient is a 63 M history of prior hypertension and prior anal cancer for which he had abdominal rectal surgery for. Patient states he thinks he ate something that may have been bad earlier this morning around 4 AM he started having nausea vomiting abdominal discomfort. Loose stools. No melena. No hematemesis. No fever. States he has had episodes like this before. Denies any dysuria or any difficulty urinating. No back pain. Physical Examination: Older male no acute distress. Vital signs are stable. Afebrile. HEENT exam mildly [place] memories. Neck nontender no lymphadenopathy. Lungs clear to auscultation bilaterally. Heart regular rhythm no murmur. Abdomen soft. Mild right-sided tenderness. No rebound, guarding or rigidity. No hernia or masses. No signs of obstruction. No distention. He does have bowel sounds. No specific Yancey's sign tenderness no specific McBurney's point tenderness. Patient moving all 4 extremities. Neurovascular intact. No edema. Back nontender. Neurologically is awake alert. Test Results: CBC White count 11.7. Hemoglobin 16. No bands. Electrolytes unremarkable normal creatinine and gap. Liver enzymes normal. Lipase normal. Emergency Department Course and Treatment: Patient be treated with IV fluids and IV Zofran. Hold off on any pain medication at this time to see how he progresses. Screening labs are being obtained. Repeat exam at 1518 p.m. patient is doing well. Abdomen is benign. I went over all test results of both he and his . I do not feel that he needs imaging at this time and just started today he is having symptoms consistent with a viral syndrome and his exam is not consistent with acute appendicitis or other intra-abdominal pathology. Treatment Plan: Zofran as needed for nausea. Plenty of fluids and rest. Bone Gap diet increase as tolerated. Alternate Tylenol and or Motrin for pain. Return if feeling worse. Follow-up if not improving. Disposition: Discharge Impression: Acute nausea and vomiting with abdominal pain syndrome This note was generated with [employer] dictation software. It may contain incorrect words, spelling, and punctuation that were not noted in review of the chart prior to signing ED Disposition - Plan for ED Patient: Referrals: Prince Benavidez MD [Primary Care Provider] -
[2019-06-07] MEDS: 0.9% Normal Saline 1,000 ML 1000 ML IV (13:41)
[2019-06-07] MEDS: Ondansetron 4 MG/2 ML Vial IV (13:41)
[2019-06-07 13:47] LABS: Absolute Lymphocyte Count 0.85 X10^3/uL (0.83-4.51); Absolute Neutrophil Count 10.3 X10^3/uL (2.0-7.7); Basophil# 0.04 X10^3/uL; Basophil% 0.3 % (0-1); Eosinophil# 0.01 X10^3/uL; Eosinophils% 0.1 % (0-5); Hematocrit 49.4 % (40-54); Hemoglobin 16.6 g/dL (13.0-16.5); Lymphocyte # 0.85 X10^3/ul (4.0); Lymphocyte % 7.2 % (19-41); Mean Corp Hgb Conc 33.6 g/dL (32-36); Mean Corpuscular Hgb 31.4 pg (27.0-32.0); Mean Corpuscular Volume 93.6 fL (80-94); Monocyte# 0.48 X10^3/uL; Monocyte% 4.1 % (0-10); NRBC Flagged by Analyzer 0 % (0-5); Neutrophil % 87.9 % (47-70); Platelet Count 246 K/mm3 (150-450); RBC Distribution Width CV 13.1 % (11.6-14.6); RBC Distribution Width SD 44.9 fl (35.1-43.9); Red Blood Count 5.28 M/mm3 (4.6-6.2); White Blood Count 11.7 K/mm3 (4.4-11.0)
[2019-06-07 14:02] LABS: AST(SGOT) 23 U/L (15-37); Alanine Aminotransfer ALT/SGPT 30 U/L (16-61); Albumin, Serum 3.6 g/dL (3.2-5.0); Alkaline Phosphatase 79 U/L (45-117); Anion Gap 6 (5-15); BUN 16 mg/dL (7-18); BUN/Creat Ratio 17.9 RATIO (10-20); Bilirubin, Direct 0.11 mg/dL (0.00-0.30); Calcium,Total 9.4 mg/dL (8.5-10.1); Chloride 105 mmol/L (98-107); Creatinine, Serum 0.89 mg/dL (0.70-1.30); EST Glomerular Filtration Rate 92 mL/min (>60); Est Glom Filt Rate - Afr Amer 111 mL/min (>60); Estimated Creatinine Clearance 86.06 ml/min; Globulin 3.9 g/dL (2.2-4.2); Glucose 122 mg/dL (74-106); Lipase 67 U/L (73-393); Protein, Total 7.5 g/dL (6.4-8.2); Sodium Level 142 mmol/L (136-145)
[2019-06-07 15:04] VITALS: RESP 14
--- NOTE | 2019-06-07 15:23 | DCINST.ED_ITS ---
ED Disposition - Plan for ED Patient: Disposition: Home or Assisted Living Instructions: GASTROENTERITIS, Viral (7y-Adult) Prescriptions: Ondansetron [Zofran Odt] 4 mg PO Q8H PRN PRN #10 tab PRN Reason: Nausea Prescription Printed Referrals: Prince Benavidez MD [Primary Care Provider] - 3-5 Days if not improving Additional Instructions: Money of fluids and rest. [place] diet and increase slowly. Tylenol and/or Motrin for pain. Return to ER if you are feeling worse or having increasing pain or unable to keep fluids down. Follow-up with your doctor if just not improving. Zofran as needed for nausea.
[2019-06-07 15:34] VITALS: BP 135/87; PULSE 61; RESP 14; O2SAT 97
== END 2019-06-07 15:35 | disposition home or self-care (01) ==
PROVIDERS: Emergency Provider Emergency Medicine; Family Provider Family Medicine; PCP Family Medicine
DX: A08.4 Viral intestinal infection, unspecified (principal); I10 Essential (primary) hypertension; Z85.048 Personal history of other malignant neoplasm of rectum, rectosigmoid junction, and anus; Z79.82 Long term (current) use of aspirin; Z79.899 Other long term (current) drug therapy; Z72.0 Tobacco use
CPT/HCPCS: 80048; 80076; 83690; 85025; 96360; 96361; 99283; J7030; A4216; J2405

== ENCOUNTER → 2019-12-28 09:40 | Outpatient (CLI) | payer BC, SELFPAY ==
[2019-12-20 15:16] VITALS: BMI 23.6
--- NOTE | 2019-12-28 09:43 | CDU_ITS ---
Reason For Study: carotid stenosis Rt. Velocities/BP Lt. Velocities/BP Prox CCA 70.8/18.6 cm/sec. Prox CCA 59.6/20.3 cm/sec. Mid CCA 66.9/18.6 cm/sec. Mid CCA 73.5/22.9 cm/sec. Dist CCA 73.4/22.6 cm/sec. Dist CCA 71.8/19.5 cm/sec. Prox ICA 57.5/22.3 cm/sec. Prox ICA 64.8/17.7 cm/sec. Mid ICA 56.4/23.4 cm/sec. Mid ICA 55.2/21.2 cm/sec. Dist ICA 88.2/25.6 cm/sec. Dist ICA 65.7/26.4 cm/sec. Rt. ICA/CCA = 1.3. Lt. ICA/CCA = .9. Prox ECA 133.9/24.3 cm/sec. Prox ECA 75.3/15.1 cm/sec. Rt. Vert. 28.7/6.6 cm/sec. Lt. Vert. 45.6/15.1 cm/sec. Right Extracranial There is heterogeneous, irregular atherosclerotic plaque noted in the right common carotid artery. There is heterogeneous, irregular atherosclerotic plaque noted in the right internal carotid artery. There is heterogeneous, irregular atherosclerotic plaque noted in the right external carotid artery. Antegrade flow is noted in the right vertebral artery. Left Extracranial There is heterogeneous, irregular atherosclerotic plaque noted in the left common carotid artery. There is heterogeneous, irregular atherosclerotic plaque noted in the left internal carotid artery. There is heterogeneous, irregular atherosclerotic plaque noted in the left external carotid artery. Antegrade flow is noted in the left vertebral artery. Procedure Carotid Duplex [id number]. The exam was diagnostic. Exam performed in department. Interpretation Summary Irregular calcific plaque at the proximal right internal and external carotid arteries <50% stenosis right internal carotid <50% stenosis right external carotid Irregular calcific plaque at the proximal left internal and external carotid arteries <50% stenosis left internal carotid <50% stenosis left external carotid Patent, antegrade vertebrals bilaterally Ordering Physician: Michael Alanis Performed By: Lon Garcia RVT
== END ==
PROVIDERS: PCP Family Medicine; Referring Provider Surgery; Visit Provider Surgery
DX: I65.23 Occlusion and stenosis of bilateral carotid arteries (principal)
CPT/HCPCS: 93880

== ENCOUNTER 2020-01-09 20:29 | Emergency (ER) | payer BC, SELFPAY ==
[2019-12-20 15:16] VITALS: BMI 23.6
[2020-01-09 20:29] VITALS: BP 197/111; PULSE 62; RESP 20; TEMP 36.2; O2SAT 97; BMI 23.6
[2020-01-09 21:04] VITALS: BP 166/104; PULSE 77; RESP 18; O2SAT 96
[2020-01-09 21:16] LABS: Absolute Lymphocyte Count 1.09 X10^3/uL (0.83-4.51); Absolute Neutrophil Count 4.2 X10^3/uL (2.0-7.7); Basophil# 0.02 X10^3/uL; Basophil% 0.3 % (0-1); Eosinophil# 0.14 X10^3/uL; Eosinophils% 2.3 % (0-5); Hematocrit 43.4 % (40-54); Hemoglobin 14.2 g/dL (13.0-16.5); Lymphocyte # 1.09 X10^3/ul (4.0); Lymphocyte % 18.1 % (19-41); Mean Corp Hgb Conc 32.7 g/dL (32-36); Mean Corpuscular Hgb 30.8 pg (27.0-32.0); Mean Corpuscular Volume 94.1 fL (80-94); Mean Platelet Vol. 10.3 fl (6.2-12.0); Monocyte# 0.54 X10^3/uL; NRBC Flagged by Analyzer 0 % (0-5); Neutrophil # 4.23 X10^3/uL (2.7-7.7); Neutrophil % 70.1 % (47-70); Platelet Count 217 K/mm3 (150-450); RBC Distribution Width CV 13.9 % (11.6-14.6); RBC Distribution Width SD 47.9 fl (35.1-43.9); Red Blood Count 4.61 M/mm3 (4.6-6.2)
[2020-01-09 21:48] LABS: ALB/GLOB Ratio 0.9 RATIO (0.9-2.4); AST(SGOT) 17 U/L (15-37); Alanine Aminotransfer ALT/SGPT 23 U/L (16-61); Albumin, Serum 3.2 g/dL (3.2-5.0); Alkaline Phosphatase 71 U/L (45-117); Anion Gap 5 (5-15); BUN 17 mg/dL (7-18); BUN/Creat Ratio 19.3 RATIO (10-20); Calcium,Total 9.1 mg/dL (8.5-10.1); Chloride 109 mmol/L (98-107); Creatinine, Serum 0.88 mg/dL (0.70-1.30); EST Glomerular Filtration Rate 93 mL/min (>60); Est Glom Filt Rate - Afr Amer 113 mL/min (>60); Estimated Creatinine Clearance 85.92 ml/min; Globulin 3.5 g/dL (2.2-4.2); Glucose 86 mg/dL (74-106); Potassium 3.7 mmol/L (3.5-5.1); Protein, Total 6.7 g/dL (6.4-8.2); Sodium Level 145 mmol/L (136-145)
--- NOTE | 2020-01-09 22:37 | ED.DCSUM_ITS ---
History of Present Illness Chief Complaint: Numb/Ting Detail of Chief Complaint: Inability to ambulate Informant: Patient Onset: Today Context: Sudden Onset Timing: Continuous Quality: Patient complains of numbness tingling in his lower extremities and inabili Location: Occurred at work Current Severity: Moderate Maximum Severity: Severe Worsened by: Nothing Relieved by: Nothing Associated Symptoms: No associated symptoms Narrative: Patient is a 64-year-old male who has history of peripheral vascular disease who recently saw Dr. Michael Alanis. He also has history of colon cancer diagnosed in 1997. He has had no recurrence. He presents because of acute bilateral lower extremity numbness and inability to walk. He required assistance. He was able to stand with minimal assistance. He denies bowel or bladder dysfunction. He denies radicular pain. He denies fever, chills or night sweats. He denies numbness or tingling in the perineal region. He denies prior history. He denies history of neuropathy. Prior similar symptoms: No Recent Illness/Hospitalization: No - Past Medical History (1) Anal cancer Status: Acute (2) Anxiety Status: Acute (3) Carotid artery stenosis Status: Acute (4) [id number] Status: Acute (5) Tobacco dependency Status: Acute (6) Hypertension Status: Chronic Past Medical History - Allergies and Home Meds Allergies/Adverse Reactions: Allergies No Known Allergies Allergy (Verified 01/09/20 21:04) Primary Care Physician: Prince Benavidez MD [Primary Care Provider] - Surgical History: no surgical history Lives: Alone - Patient is . Smoking Status: Current every day smoker Alcohol: Rare Drugs: None Review of Systems General: Denies: Chills, Fever, Malaise, Subjective Eyes: Denies: Visual changes - bilaterally, Blurred Vision - bilaterally ENT: Denies: Rhinorrhea, Sore throat Cardiovascular: Denies: Chest pain, Palpitations Respiratory: Denies: Dyspnea, Cough, Dyspnea on exertion Gastrointestinal: Denies: Abdominal pain, Nausea, Vomiting, Diarrhea, Melena, Hematochezia Genitourinary: Denies: Dysuria, Hematuria, Frequency Musculoskeletal: Denies: Myalgias, Arthralgias, Neck pain, Back pain, Swelling, Extremity Pain, -, - Skin: Denies: Rash, Wounds Neurological: Reports: Weakness, Parasthesia, Numbness. Denies: Headache Psych: Denies: Depression, Anxiety Hematologic: Denies: Easy bruising, Easy bleeding Physical Exam Vital Signs/Narrative: Vital Signs Temp Pulse Resp BP Pulse Ox 01/09/20 21:04 77 18 166/104 H 96 01/09/20 20:29 97.1 F L 62 20 H 197/111 H 97 Inital Vital Signs reviewed: Yes General: Well nourished, Well developed, No Acute Distress Head: Normocephalic, Atraumatic Eyes: Perrl, EOMI ENT: Moist mucous membranes, No rhinorrhea Neck: Supple, Nontender Cardiovascular: Regular rate, Regular rhythm, No murmurs Respiratory: No distress, CTA bilaterally, Chest nontender Abdomen: Soft, Nontender, Nondistended, Normal bowel sounds Rectal: - - He denies decreased perianal sensation and is able to tighten his sphincter. Back: Nontender, Normal Inspection. Negative for: CVA tenderness, Spinal tenderness Extremities: Nontender, No edema Skin: Normal color, No rash Neurological: Alert, Oriented x3, Cranial nerves II-XII grossly intact, Normal Strength - EHL is intact bilaterally. Plantar and dorsi motor strength 5/5. Patient is able to lift his legs off the bed., Normal Sensation, Normal DTR - There is no clonus or Babinski sign., - - Right leg test is negative bilaterally. Patella and ankle reflex are 2+ and symmetric. Psychological: Normal affect, Normal Mood Diagnostic/Tx/Re-eval Laboratory Results 01/09/20 01/09/20 21:06 21:06 WBC 6.0 RBC 4.61 Hgb 14.2 Hct 43.4 MCV 94.1 H MCH 30.8 MCHC 32.7 RDW Std Deviation 47.9 H RDW Coeff of Fabio 13.9 Plt Count 217 MPV 10.3 Immature Gran % (Auto) 0.200 Neut % (Auto) 70.1 H Lymph % (Auto) 18.1 L [place] % (Auto) 9.0 Eos % (Auto) 2.3 Baso % (Auto) 0.3 Absolute Neuts (auto) 4.2 Absolute Lymphs (auto) 1.09 Nucleated RBC % 0 Sodium 145 Potassium 3.7 Chloride 109 H Carbon Dioxide 31.0 Anion Gap 5 BUN 17 Creatinine 0.88 Estim Creat Clear Calc 85.92 Est GFR (MDRD) Af Amer 113 Est GFR (MDRD) Non-Af 93 BUN/Creatinine Ratio 19.3 Glucose 86 Calcium 9.1 Total Bilirubin 0.40 AST 17 ALT 23 Alkaline Phosphatase 71 Total Protein 6.7 Albumin 3.2 Globulin 3.5 Albumin/Globulin Ratio 0.9 His laboratory work-up was unremarkable. Patient has a non-focal exam. Furthermore exam does not indicate cauda equina or herniated disc. Patient was informed the etiology of his numbness and inability to walk is unknown. ED Disposition - Plan for ED Patient: Disposition: Home or Assisted Living Diagnosis: Paresthesia of both lower extremities, Difficulty walking Instructions: ED Paraesthesias Referrals: Prince Benavidez MD [Primary Care Provider] - 3-5 Days
[2020-01-09 22:48] VITALS: BP 180/109; PULSE 82; RESP 18; O2SAT 98
== END 2020-01-09 22:58 | disposition home or self-care (01) ==
PROVIDERS: Emergency Provider Emergency Medicine; PCP Family Medicine
DX: R20.2 Paresthesia of skin (principal); R26.2 Difficulty in walking, not elsewhere classified; R20.0 Anesthesia of skin; I65.29 Occlusion and stenosis of unspecified carotid artery; I10 Essential (primary) hypertension; I73.9 Peripheral vascular disease, unspecified; F41.9 Anxiety disorder, unspecified; F17.200 Nicotine dependence, unspecified, uncomplicated; Z79.899 Other long term (current) drug therapy; Z85.038 Personal history of other malignant neoplasm of large intestine
CPT/HCPCS: 80053; 85025; 99283; A4216

== ENCOUNTER 2021-08-27 07:48 | Outpatient (CLI) | payer BC, SELFPAY ==
--- NOTE | 2021-08-27 07:53 | ADUL_ITS ---
Reason For Study: Iliac artery aneurysm, right Right Velocities EIA, distal, 0.92 x 0.96 x 0.95 cm. Ext. Iliac Artery, dist = 168.1 cm./sec. Common Femoral Artery, mid = 102.2 cm./sec. Supf Femoral Artery, prox = 132.7 cm./sec. Supf Femoral Artery, mid = 78 cm./sec. Supf Femoral Artery, dist. = 81.5 cm./sec. Profunda Femoral Artery = 97.8 cm./sec. Popliteal Artery, mid = 65 cm./sec. Post. Tibial Artery, prox = 79.6 cm./sec. Post. Tibial Artery, mid = 92.4 cm./sec. Post. Tibial Artery, dist = 75.9 cm./sec. Peroneal Artery, prox = 46.9 cm./sec. Peroneal Artery, mid = 55.4. cm./sec. Peroneal Artery,dist = 41.2 cm./sec. Ant. Tibial Artery, prox = 18.8 cm./sec. Ant. Tibial Artery, mid = 31 cm./sec. Ant. Tibial Artery, dist = 55.5 cm./sec. Procedure Exam performed in department. /US Art Duplex Unilat Lower Ext Interpretation Summary Normal diameter right external iliac artery at 0.92 x 0.96 cm Diffuse mild calcification of the right common femoral artery wall Patent right lower extremity arteries with less than 50% stenosis Calcification right popliteal artery with less than 50% stenosis. No evidence f or right popliteal artery aneurysm Ordering Physician: Michael Alanis Referring Physician: Prince Benavidez Performed By: Monica Christiansen RVT
--- NOTE | 2021-08-27 07:53 | AAVD_ITS ---
Reason For Study: Iliac artery aneurysm, right Aorta Measurements Aorta Doppler Measurements Proximal aorta measures1.85 x 1.88cm. in cross- Peak systolic flow velocities within the proximal sectional axis. aorta measure 86.9 cm/sec. Proximal aorta measures1.85cm. in longitudinal Peak systolic flow velocities within the mid aorta axis. measure 51.2 cm/sec. Mid aorta measures1.93 x 2.02cm. in cross- Peak systolic flow velocities within the distal sectional axis. aorta measure 49 cm/sec. Mid aorta measures1.97cm. in longitudinal axis. Distal aorta measures1.95 x 2.00cm. in cross- sectional axis. Distal aorta measures1.93cm. in longitudinal axis. Left Iliac Artery Left iliac artery measures 0.90 x 0.92 cm. in the cross-sectional axis. Left iliac artery measures 0.92 cm. in the longitudinal axis. Peak systolic velocity in the left iliac artery measures 55.6 cm/sec. Right Iliac Artery Right iliac artery measures 1.83 x 2.07 cm. in the cross-sectional axis. Right iliac artery measures 1.82 cm. in the longitudinal axis. Peak systolic velocity in the right iliac artery measures 56.7 cm/sec. Procedure Aorta IVC Iliac vasculature or bypass grafts 13039. Exam performed in department. VL/Abd Aortic/IVC Duplex scan Interpretation Summary Maximal aortic dimensions distally at 1.95 x 2 cm in diameter. Normal aortic fl ow. Left common iliac normal at 0.9 x 0.92 cm in diameter Right common iliac 1.83 x 2.07 cm in diameter Previous CT scan of April 10, 2016 demonstrated a 1.9 cm diameter right comm on iliac artery aneurysm Ordering Physician: Michael Alanis Referring Physician: Prince Benavidez Performed By: Monica Christiansen RVT
== END 2021-08-27 23:59 | disposition short-term general hospital (02) ==
PROVIDERS: PCP Family Medicine; Referring Provider Surgery; Visit Provider Surgery
DX: I72.3 Aneurysm of iliac artery (principal); I65.29 Occlusion and stenosis of unspecified carotid artery; I10 Essential (primary) hypertension
CPT/HCPCS: 93926; 93978

== ENCOUNTER 2022-10-02 09:38 | Emergency (ER) | payer BC, SELFPAY ==
[2022-10-02 09:39] VITALS: BP 160/93; PULSE 68; RESP 18; TEMP 35.7; O2SAT 96; BMI 25.2
--- NOTE | 2022-10-02 10:21 | EDS_ITS ---
HPI History of Present Illness Chief Complaint: Other, Pain/Inj Informant: patient Narrative Narrative: Patient is a 66-year-old male presenting with neck pain. Patient states has been having worsening neck pain for the past 3 days. It is worse whenever he tries to move his head. Really does not not matter which direction. Patient states that pretty suddenly. He has had intermittent shooting pain that he describes as lightning in his left inner arm. Denies any weakness. Denies any fever or chills. Denies any difficulty swallowing but notes he did have a sore throat about a week ago. That seems to be improving. 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 He denies any associated injury. No other complaints at this time. Has not taken anything for symptoms prior to arrival including ibuprofen or Tylenol. States he initially went to urgent care where they told him in any imaging so they sent him to the ER. [facility] Medical History (Updated 10/02/22 @ 10:[address] Nancy Vallse DO) Anal cancer Anxiety Arthritis Bradycardia Carotid artery stenosis Difficulty swallowing Fatigue [id number] Heart murmur Hypertension Iliac artery aneurysm, right Near syncope Tobacco dependency Home Medications lisinopril 10 mg tablet 30 mg PO DAILY 09/11/21 [History Last Taken Unknown] amlodipine 5 mg tablet 5 mg PO DAILY 10/02/22 [History Last Taken Unknown] ibuprofen 600 mg tablet 600 mg PO Q6H PRN PRN pain #20 TABLETS 10/02/22 [Rx Last Taken Unknown] tizanidine 4 mg tablet (Zanaflex) 4 mg PO Q8H PRN muscle spasticity #20 tabs 10/02/22 [Rx Last Taken Unknown] Allergy/AdvReac Type Severity Reaction Status Date / Time No Known Allergies Allergy Verified 09/11/21 08:57 Family History Father Diabetes CAD (coronary artery disease) Mother CAD (coronary artery disease) Brother Cancer Lung cancer Surgical History History of partial colectomy Hx of colonoscopy Hx of hernia repair Rectal cyst Social History Smoking Status: Current every day smoker tobacco type: cigarettes alcohol intake: never substance use type: does not use caffeine: Yes ROS ROS ED Constitutional Constitutional ED: Denies chills or fever(s) Eyes Eyes: Denies blurry vision or change in vision ENT ENT ED: Reports sore throat and other Details: No ringing in the ears ; Denies ear pain or rhinorrhea Cardiovascular Cardiovascular: Denies chest pain Respiratory/Chest Respiratory/Chest: Denies cough Gastrointestinal Gastrointestinal: Denies abdominal pain or nausea Musculoskeletal Musculoskeletal: Reports neck pain; Denies arthralgias or back pain Integumentary Denies rash Neurologic Neurologic: Denies headache(s), paresthesias or weakness Psychiatric Psychiatric: Denies anxiety Hematologic/Lymphatic Hematologic/Lymphatic: Denies easy bleeding or easy bruising EXAM Physical Exam Const Vital Signs: 10/02/22 09:39 10/02/22 09:45 10/02/22 10:28 Temperature 96.2 F L Temperature Source Temporal Pulse Rate 68 72 Respiratory Rate 18 16 Respiratory Effort Normal Non-Labored Respiratory Pattern Normal Blood Pressure 160/93 H 141/65 H Blood Pressure Mean 115 Pulse Ox 96 98 Oxygen Delivery Method Room Air Positive well nourished and well developed General Appearance ED: well developed and NAD HEENT Reports TM's clear and moist mucous membranes HEENT Narrative: Normal oropharynx. Uvula is midline. No tonsillar edema or swelling appreciated. Negative for trauma Tympanic Membrane ED: Yes TM's clear Eyes PERRL and EOMs intact bilaterally Neck no lymphadenopathy, supple and no JVD Neck Narrative: No midline tenderness. Decreased range of motion especially with leftward and rightward movement consistent with a bilateral torticollis. Significant tenderness to palpation of the bilateral sternocleidomastoid muscle as well as tenderness palpation of the trapezius especially at the insertion point in the scalp. General: tenderness Chest Wall inspection of chest normal and palpation of chest normal Resp normal respiratory effort and clear to auscultation bilaterally GI Inspection: Negative for abdominal distention Back/Spine Cervical Spine: Negative for cervical spine tenderness Thoracic Spine / Upper Back: Negative for thoracic spinal tenderness Lumbar Spine / Lower Back: Negative for lumbar spinal tenderness Extremity normal to inspection Extremity Narrative: Normal range of motion of the upper extremities. Normal strength of the upper extremities. General Extremety ED: Negative for edema or tenderness General Extremity: Negative for edema Neuro oriented x3, CN's II-XII intact bilaterally and no sensory deficits noted Neuro Narrative: Normal strength and sensation of the upper extremities. Normal medical clerk strength. Intact intrinsic movements of the hands. Sensorium / Orientation: alert Motor Exam: strength 5/5 throughout Psych mental status grossly normal Skin no rashes or lesions noted and no wounds MDM MDM MDM Narrative Medical decision making narrative: Patient is evaluated for neck pain. It is highly consistent with muscular pain. No midline tenderness. No trauma. No fever, night sweats or other symptoms concerning for oncologic process. Patient is afebrile. No difficulty swallowing with clear phonation so low suspicion for meningitis or pharyngeal mass. Patient is not tried any [id number] medications so we will start with treatment with NSAIDs and muscle relaxer. Counseled to use warm heat. Is counseled to follow-up with primary care doctor. He was given a work note for today and has the weekend off. He does operate heavy machinery so is counseled that he should not take the muscle relaxers before work. Patient has a normal neurologic exam at this time I do not think emergent imaging is indicated. He verbalizes agreement understanding with this plan. Is given a dose of Norflex and Motrin in the emergency room. Counseled on return precautions. Discharge Plan Triage Chief Complaint: Other, Pain/Inj ED Provider: Nancy Valles Dx/Rx/DC Orders Clinical Impression: Torticollis, acute, Acute strain of neck muscle Instructions: Torticollis (Wry Neck), ED Neck Sprain or Strain Prescriptions: New tizanidine [Zanaflex] 4 mg tablet 4 mg PO Q8H PRN (Reason: muscle spasticity) Qty: 20 0RF ibuprofen 600 mg tablet 600 mg PO Q6H PRN PRN (Reason: pain) Qty: 20 0RF No Action lisinopril 10 mg tablet 30 mg PO DAILY Label Comments: TAKE 1 TABLET BY MOUTH EVERY DAY amlodipine 5 mg tablet 5 mg PO DAILY Label Comments: TAKE 1 TABLET BY MOUTH EVERY DAY Stand Alone Forms: ED Work / School Excuse Primary Care Provider: Prince Benavidez Referrals: Prince Benavidez MD [Primary Care Provider] - Activity Restrictions/Additional Instructions: Use warm heat. If you develop a fever, vision changes or acute numbness/speech changes or weakness of one of your extremities please return to the closest emergency room. Please follow-up with your primary care doctor. You may also take [id number] Tylenol in addition to the medications prescribed today. Disposition Disposition: Home, Self Care Discharge Date/Time: 10/02/22 10:30
[2022-10-02] MEDS: Ibuprofen 600 MG Tablet PO (10:25)
[2022-10-02] MEDS: Orphenadrine 60 MG/2 ML Ampul IM (10:26)
[2022-10-02 10:28] VITALS: BP 141/65; PULSE 72; RESP 16; O2SAT 98
== END 2022-10-02 10:30 | disposition home or self-care (01) ==
PROVIDERS: Emergency Provider Emergency Medicine; PCP Family Medicine; Visit Provider Emergency Medicine
DX: S16.1XXA Strain of muscle, fascia and tendon at neck level, initial encounter (principal); M43.6 Torticollis; I10 Essential (primary) hypertension; F17.210 Nicotine dependence, cigarettes, uncomplicated; X58.XXXA Exposure to other specified factors, initial encounter
CPT/HCPCS: 96372; 99283